=== PATIENT | male | born 1985 | race Hispanic/Latino ===

== ENCOUNTER 2019-01-17 18:20 | Emergency (ER) | payer BC ==
[2019-01-17] MEDS ORDERED: Ondansetron ODT 4 MG TAB ONE (19:15)
[2019-01-17] MEDS ORDERED: Oseltamivir 75 MG CAP ONE (19:16)
== END 2019-01-17 19:28 | disposition home or self-care (01) ==
LOC: MADERS 18:20
DX: J11.1 Influenza due to unidentified influenza virus with other respiratory manifestations (principal); R11.2 Nausea with vomiting, unspecified; E11.9 Type 2 diabetes mellitus without complications; Z79.84 Long term (current) use of oral hypoglycemic drugs
CPT/HCPCS: 87804; 99284; Q0162

== ENCOUNTER 2021-10-03 14:24 | Emergency (ER) | payer BC ==
[2021-10-03] MEDS ORDERED: Ibuprofen 800 MG TAB ONE (15:31)
== END 2021-10-03 16:56 | disposition home or self-care (01) ==
LOC: MADERS 14:24
DX: M70.71 Other bursitis of hip, right hip (principal); D22.5 Melanocytic nevi of trunk

== ENCOUNTER 2023-07-13 18:08 | Emergency (ER) | payer BC | END 2023-07-13 19:01 | disposition home or self-care (01) | LOC: MADERS 18:08 | DX: L76.34 Postprocedural seroma of skin and subcutaneous tissue following other procedure (principal); L03.90 Cellulitis, unspecified; I10 Essential (primary) hypertension | CPT/HCPCS: 87070; 87205; 99283 ==